=== PATIENT | male | born 1965 | race Caucasian/White ===

== ENCOUNTER 2024-08-14 10:33 | Inpatient (IN) | payer MEDICAID ==
[2024-08-14] MEDS ORDERED: Sodium Chloride 0.9% 10 ML Syringe FLUSH PRN (10:53)
[2024-08-14] MEDS: Sodium Chloride 0.9% 1,000 ML IV SCH (11:21)
[2024-08-14] MEDS: Ondansetron 4 MG/2 ML SDV IVPUSH ONE (11:21)
[2024-08-14] MEDS: HYDROmorphone 0.5 MG/0.5 ML Syringe IVPUSH ONE (11:22)
[2024-08-14 11:46] LABS: BASOPHILS PERCENT AUTO 0.7 % (0.0-1.0); EOSINOPHILS PERCENT AUTO 0.3 % (0.0-6.0); HEMATOCRIT 47.2 % (42.0-52.0); HEMOGLOBIN 15.5 gm/dl (14.0-18.0); IMMATURE GRAN ABSOLUTE AUTO 0.02 K/mm3 (0.00-0.05); IMMATURE GRAN PERCENT AUTO 0.7 % (0.0-0.4); MEAN CORPUSCULAR HEMOGLOBIN 31.1 pg (28.0-32.0); MEAN CORPUSCULAR HGB CONC 32.8 g/dl (32.0-36.0); MEAN CORPUSCULAR VOLUME 94.6 fl (83.0-99.0); MEAN PLATELET VOLUME 9.1 fl (9.4-12.4); MONOCYTES ABSOLUTE AUTO 0.2 K/mm3 (0.0-0.8); NEUTROPHILS ABSOLUTE AUTO 1.8 K/mm3 (1.8-7.7); NEUTROPHILS PERCENT AUTO 58.3 % (41.0-71.0); PLATELET COUNT,PLT 198 K/mm3 (150-400); RED BLOOD CELL COUNT 4.99 M/mm3 (4.52-5.90)
[2024-08-14 12:15] LABS: A/G RATIO 0.9 (1-2); ALANINE AMINOTRANSFERASE,ALT 16 U/L (16-63); ALBUMIN 3.6 g/dl (3.4-5.0); ALKALINE PHOSPHATASE 65 U/L (46-116); ANION GAP 29.5 (5-15); ASPARTATE AMNIOTRANSFERASE,AST 13 U/L (15-37); BILIRUBIN TOTAL 0.5 mg/dL (0.2-1.0); BLOOD UREA NITROGEN,BUN 17 mg/dL (7-18); BUN/CREATININE RATIO 10.6 (14-18); C-REACTIVE PROTEIN <0.05 mg/dL (<0.30); CALCIUM 8.7 mg/dL (8.5-10.1); CARBON DIOXIDE,CO2 10 mEq/L (21-32); CHLORIDE,CL 101 mEq/L (98-107); CREATININE 1.6 mg/dL (0.7-1.3); ESTIMATED GFR 49 mL/min (>60); GLUCOSE RANDOM 336 mg/dL (70-99); LIPASE 22 U/L (16-77); MAGNESIUM 2.2 mg/dL (1.8-2.4); POTASSIUM,K 4.5 mEq/L (3.5-5.1); PROTEIN TOTAL,TP 7.6 g/dl (6.4-8.2); SODIUM,NA 136 mEq/L (136-145)
[2024-08-14 12:21] LABS: TROPONIN I HIGH SENSITIVITY < 4 pg/mL (<=76)
[2024-08-14] MEDS: Sodium Chloride 0.9% 10 ML Syringe FLUSH PRN (12:30)
[2024-08-14] MEDS: Iopamidol 755 Mg/ML 100 ML Bottle IVPUSH ONE (12:30)
[2024-08-14 12:52] LABS: BASE EXCESS ARTERIAL -18.8 (-2-2.0); BICARBONATE,ARTERIAL 7.7 meq/L (22.0-26.0)
[2024-08-14] MEDS: Sodium Chloride 0.9% 1,000 ML IV ONE (12:54)
[2024-08-14 13:24] LABS: HEMOGLOBIN A1C >14.0 %
[2024-08-14] MEDS ORDERED: Lactated Ringers 1,000 ML IV SCH (14:00)
[2024-08-14] MEDS: Insulin Regular in 0.9 % NACL 100 ML IV SCH (14:37)
[2024-08-14 14:41] LABS: BILIRUBIN,URINE NEGATIVE (Negative); COLOR,URINE YELLOW (Yellow); GLUCOSE,URINE 2+ (Negative); KETONES,URINE 4+ (Negative); LEUKOCYTE ESTERASE,URINE NEGATIVE (Negative); NITRITE,URINE NEGATIVE (Negative); OCCULT BLOOD,URINE 1+ (Negative); PROTEIN,URINE 2+ (Negative); UROBILINOGEN,URINE 0.2 (0.2-1.0)
[2024-08-14] MEDS: Sodium Chloride 0.45% with KCl 1,000 ML IV SCH (14:43)
[2024-08-14] MEDS: Ondansetron 4 MG/2 ML SDV IV PRN (15:03)
[2024-08-14 15:23] LABS: ANION GAP 27.4 (5-15); BUN/CREATININE RATIO 11.4 (14-18); CALCIUM 8.2 mg/dL (8.5-10.1); CREATININE 1.4 mg/dL (0.7-1.3); EST CRCL DRUG DOSING (CG) 57.17 mL/min; POTASSIUM,K 4.4 mEq/L (3.5-5.1)
[2024-08-14 15:25] LABS: APPEARANCE,URINE SLT CLOUDY (Clear); BACTERIA,URINE FEW /hpf (FEW); SQUAMOUS EPITHELIAL CELLS,UR 0-5 /hpf (0-5); WBC,URINE 0-5 /hpf (0-5)
[2024-08-14 15:29] LABS: COARSE GRANULAR CASTS,URINE 0-5 /hpf (0-5); MUCUS,URINE FEW /hpf (FEW)
[2024-08-14] MEDS: Polyethylene Glycol 3350 Powder 17 GM Packet PO ONE (15:46)
[2024-08-14] MEDS: Sennosides/Docusate Sodium 50-8.6 MG Tab PO ONE (15:46)
[2024-08-14] MEDS: D5 1/2 NS w/ 20 mEq/L KCl 1,000 ML IV SCH (16:51)
[2024-08-14 17:15] LABS: CHOLESTEROL HDL 45 mg/dL (40-59); CHOLESTEROL LDL DIRECT 247 mg/dL (<100); CHOLESTEROL TOTAL 350 mg/dL (<200); TRIGLYCERIDES 259 mg/dL (<150)
[2024-08-14] MEDS: Metoclopramide 10 MG/2 ML SDV IVPUSH ONE (17:15)
[2024-08-14 19:20] LABS: ANION GAP 18.5 (5-15); BUN/CREATININE RATIO 10.8 (14-18); CALCIUM 7.8 mg/dL (8.5-10.1); CREATININE 1.3 mg/dL (0.7-1.3); EST CRCL DRUG DOSING (CG) 61.56 mL/min; POTASSIUM,K 3.5 mEq/L (3.5-5.1)
[2024-08-14] MEDS: Sennosides/Docusate Sodium 50-8.6 MG Tab PO SCH (20:08)
[2024-08-14] MEDS: Acetaminophen 325 MG Tab PO PRN (21:17)
[2024-08-14] MEDS: Iopamidol 612 MG/ML 100 ML Bottle IVPUSH ONE (21:54)
[2024-08-14] MEDS: LORazepam 2 MG/ML SDV IVPUSH PRN (22:59)
[2024-08-14 23:23] LABS: ANION GAP 15.6 (5-15); BUN/CREATININE RATIO 11.7 (14-18); CALCIUM 8.4 mg/dL (8.5-10.1); CREATININE 1.2 mg/dL (0.7-1.3); EST CRCL DRUG DOSING (CG) 66.69 mL/min; POTASSIUM,K 3.6 mEq/L (3.5-5.1)
[2024-08-14] MEDS: Metoclopramide 10 MG/2 ML SDV IVPUSH PRN (23:44)
[2024-08-15 02:22] LABS: ANION GAP 13.7 (5-15); BUN/CREATININE RATIO 10.8 (14-18); CALCIUM 8.5 mg/dL (8.5-10.1); CREATININE 1.2 mg/dL (0.7-1.3); EST CRCL DRUG DOSING (CG) 66.69 mL/min; POTASSIUM,K 3.7 mEq/L (3.5-5.1)
[2024-08-15 04:39] LABS: BASOPHILS PERCENT AUTO 0.4 % (0.0-1.0); EOSINOPHILS PERCENT AUTO 0.4 % (0.0-6.0); HEMATOCRIT 39.4 % (42.0-52.0); HEMOGLOBIN 13.6 gm/dl (14.0-18.0); IMMATURE GRAN ABSOLUTE AUTO 0.02 K/mm3 (0.00-0.05); IMMATURE GRAN PERCENT AUTO 0.7 % (0.0-0.4); LYMPHOCYTES PERCENT AUTO 35.4 % (24.0-44.0); MEAN CORPUSCULAR HEMOGLOBIN 31.8 pg (28.0-32.0); MEAN CORPUSCULAR HGB CONC 34.5 g/dl (32.0-36.0); MEAN CORPUSCULAR VOLUME 92.1 fl (83.0-99.0); MEAN PLATELET VOLUME 9.2 fl (9.4-12.4); MONOCYTES ABSOLUTE AUTO 0.4 K/mm3 (0.0-0.8); MONOCYTES PERCENT AUTO 13.3 % (0.0-8.0); NEUTROPHILS ABSOLUTE AUTO 1.4 K/mm3 (1.8-7.7); NEUTROPHILS PERCENT AUTO 49.8 % (41.0-71.0); PLATELET COUNT,PLT 179 K/mm3 (150-400); RED BLOOD CELL COUNT 4.28 M/mm3 (4.52-5.90); WHITE BLOOD CELL COUNT,WBC 2.85 K/mm3 (3.9-11.3)
[2024-08-15 05:16] LABS: ANION GAP 13.6 (5-15); BILIRUBIN TOTAL 0.3 mg/dL (0.2-1.0); BUN/CREATININE RATIO 10.9 (14-18); CALCIUM 8.4 mg/dL (8.5-10.1); CREATININE 1.1 mg/dL (0.7-1.3); EST CRCL DRUG DOSING (CG) 74.59 mL/min; PHOSPHORUS 2.2 mg/dL (2.6-4.7); POTASSIUM,K 3.6 mEq/L (3.5-5.1); PROTEIN TOTAL,TP 6.1 g/dl (6.4-8.2)
[2024-08-15 06:31] LABS: ANION GAP 14.8 (5-15); CALCIUM 8.1 mg/dL (8.5-10.1); EST CRCL DRUG DOSING (CG) 82.05 mL/min; POTASSIUM,K 3.8 mEq/L (3.5-5.1)
[2024-08-15] MEDS: Polyethylene Glycol 3350 Powder 17 GM Packet PO SCH (08:00)
[2024-08-15] MEDS: Losartan 25 MG Tab PO SCH (08:01)
[2024-08-15] MEDS: Insulin Glargine,Human Rec. Analog 100 Units/ML 3 ML Pen SUBCUT SCH (08:02)
[2024-08-15] MEDS ORDERED: Insulin Glargine,Human Rec. Analog 100 Units/ML 3 ML Pen SUBCUT SCH (09:00)
[2024-08-15] MEDS: Sodium Phosphate 15 MMOLE in Sodium Chloride 0.9% 250 ML IV ONE (09:35)
[2024-08-15] MEDS: Enoxaparin 40 MG/0.4 ML Syringe SUBCUT SCH (09:42)
[2024-08-15 10:52] LABS: ANION GAP 17.7 (5-15); CALCIUM 8.6 mg/dL (8.5-10.1); CREATININE 1.1 mg/dL (0.7-1.3); EST CRCL DRUG DOSING (CG) 74.59 mL/min; POTASSIUM,K 3.7 mEq/L (3.5-5.1)
[2024-08-15] MEDS: Insulin Lispro 100 Unit/ML 3 ML KwikPen SUBCUT SCH (11:26)
[2024-08-15] MEDS: atorvaSTATin 40 MG Tab PO SCH (20:35)
[2024-08-16] MEDS ORDERED: Insulin Lispro 100 Unit/ML 3 ML KwikPen SUBCUT SCH
[2024-08-16] MEDS ORDERED: Insulin Glargine,Human Rec. Analog 100 Units/ML 3 ML Pen SUBCUT SCH
[2024-08-16 04:57] LABS: BASOPHILS PERCENT AUTO 0.4 % (0.0-1.0); EOSINOPHILS PERCENT AUTO 1.2 % (0.0-6.0); HEMOGLOBIN 13.3 gm/dl (14.0-18.0); LYMPHOCYTES ABSOLUTE AUTO 1.4 K/mm3 (1.0-4.8); LYMPHOCYTES PERCENT AUTO 54.1 % (24.0-44.0); MEAN CORPUSCULAR HEMOGLOBIN 31.3 pg (28.0-32.0); MEAN CORPUSCULAR HGB CONC 34.1 g/dl (32.0-36.0); MEAN CORPUSCULAR VOLUME 91.8 fl (83.0-99.0); MEAN PLATELET VOLUME 9.5 fl (9.4-12.4); MONOCYTES ABSOLUTE AUTO 0.3 K/mm3 (0.0-0.8); MONOCYTES PERCENT AUTO 12.1 % (0.0-8.0); NEUTROPHILS ABSOLUTE AUTO 0.8 K/mm3 (1.8-7.7); NEUTROPHILS PERCENT AUTO 32.2 % (41.0-71.0); PLATELET COUNT,PLT 169 K/mm3 (150-400); RED BLOOD CELL COUNT 4.25 M/mm3 (4.52-5.90); WHITE BLOOD CELL COUNT,WBC 2.57 K/mm3 (3.9-11.3)
[2024-08-16 05:16] LABS: A/G RATIO 0.9 (1-2); ALBUMIN 2.7 g/dl (3.4-5.0); ANION GAP 12.1 (5-15); BILIRUBIN TOTAL 0.4 mg/dL (0.2-1.0); BUN/CREATININE RATIO 12.5 (14-18); CALCIUM 8.4 mg/dL (8.5-10.1); CREATININE 0.8 mg/dL (0.7-1.3); EST CRCL DRUG DOSING (CG) 102.44 mL/min; MAGNESIUM 2.1 mg/dL (1.8-2.4); PHOSPHORUS 1.8 mg/dL (2.6-4.7); POTASSIUM,K 3.1 mEq/L (3.5-5.1); PROTEIN TOTAL,TP 5.8 g/dl (6.4-8.2)
[2024-08-16 06:22] LABS: SLIDE REVIEW ABNORMAL SMEAR
[2024-08-16] MEDS: Phosphorus #1 250 MG Tab PO ONE (08:39)
[2024-08-16] MEDS: Potassium Chloride 20 MEQ Tab.ER PO ONE (08:39)
== END 2024-08-16 14:02 | disposition home or self-care (01) | DRG 638 ==
LOC: JD.ED 10:33 → JD.ICU 14:07
PROVIDERS: ADMIT Student in an Organized Health Care Education/Training Program; ATTEND Student in an Organized Health Care Education/Training Program
PROC: 4A033R1 Measurement of Arterial Saturation, Peripheral, Percutaneous Approach (ICD-10-PCS; principal; 2024-08-14)
DX: E11.10 Type 2 diabetes mellitus with ketoacidosis without coma (principal); N17.9 Acute kidney failure, unspecified; R93.2 Abnormal findings on diagnostic imaging of liver and biliary tract; E86.0 Dehydration; R93.89 Abnormal findings on diagnostic imaging of other specified body structures; E78.2 Mixed hyperlipidemia; E83.39 Other disorders of phosphorus metabolism; E87.6 Hypokalemia; K59.09 Other constipation
CPT/HCPCS: 36415; 36600; 71045; 71045-26; 74177; 74177-26; 76705; 76705-26; 80048; 80053; 80061; 81001; 82010; 82803; 82947; 83036; 83690; 83735; 83930; 84100; 84132; 84484; 85025; 86140; 93005; 93010; 96361; 96374; 96375; 99285; 99285-25; A9270-GY; J1815; J1815-GY; J2060; J2405; J2765; J3480; J3490; J7030; Q9967